=== PATIENT | male | born 1970 | race Caucasian/White ===

== ENCOUNTER 2024-03-24 21:14 | Emergency (ER) | payer OTHER, SELFPAY ==
[2024-03-24] VITALS (7 sets, daily range): BP systolic 96–105; BP diastolic 61–69; BMI 35.0
[2024-03-24 21:43] LABS: % Basophils 0.9 % (0-2); % Eosinophils 2.6 % (0-6); % Immature Granulocytes 0.6 % (0-0.5); % Lymphocytes 35.4 % (20.5-51.1); % Monocytes 5.6 % (1.7-9.3); % Neutrophils 54.9 % (42.2-75.2); Absolute Basophils 0.1 10^3/uL (0-0.2); Absolute Eosinophils 0.2 10^3/uL (0-0.7); Absolute Lymphocytes 2.4 10^3/uL (1.2-3.4); Absolute Monocytes 0.4 10^3/uL (0.1-0.6); Absolute Neutrophils 3.7 10^3/uL (1.4-6.5); Hematocrit 33.2 % (39.0-52.0); Hemoglobin 12.1 g/dL (13.0-18.0); Mean Corp Hgb Conc. 36.4 g/dL (33.0-37.0); Mean Corpuscular Hgb 30.5 pg (27.0-31.0); Mean Corpuscular Volume 83.6 fL (80.0-94.0); Mean Platelet Volume 9.9 fL (7.4-10.4); Nucleated Red Blood Cells % 0 % (-); Platelet Count 218 10^3/uL (130-400); Red Blood Cell Count 3.97 10^6/uL (4.70-6.10); Red Cell Dist. Width 12.4 % (11.5-14.5); White Blood Cell Count 6.6 10^3/uL (4.8-10.8)
--- NOTE | 2024-03-24 21:49 | ED.GENMED ---
History of Present Illness
General
Chief Complaint: Fainting/Passed Out
Time Seen by Provider: 03/24/24 21:23
Travel History
Have you had any contact with someone who has COVID-19?: No
Do you have any symptoms of coronavirus? Fever > 100 degrees, chills, cough, shortness of breath, sore throat, loss of taste or smell, muscle aches, or headache?: No
Symptoms:: syncope, heart palpitations
History of Present Illness
History of Present Illness:
54-year-old male history of atrial fibrillation, asthma, syncope presenting with syncope. at bedside states patient was sitting down when he started to feel dizziness, clammy, diaphoretic and near syncope so he laid on the ground. Patient did
not strike his head. states when medics arrived, they took his blood pressure which was noted to be 60s/40s. Patient was administered 700cc NS IV with improvement. Patient denies any chest pain, headache, shortness of breath, abdominal pain,
vomiting, numbness, weakness, tingling or urinary symptoms. Patient states this feels similar to previous syncopal episodes. Patient admits to having 4 alcoholic beverages and taking a hit from a vape pen tonight. Patient reports feeling
palpitations currently which he always has.
Phy Exam
Physical Exam
Physical Exam:
General: Alert, no acute distress
Head: NCAT
Eyes: clear conjunctiva, PERRLA, EOMI
Neck: supple
Cardiac: regular rate and rhythm, no murmur
Lungs: clear to auscultation bilaterally. No wheezes, rales, or rhonchi. Speaking full unlabored sentences. No respiratory distress.
Abdomen: soft, nondistended nontender. No rebound or guarding.
MSK: no lower extremity edema bilaterally. No deformity
Skin: warm, dry
Neuro: Alert and oriented x3. no focal deficits
Course
Orders/Labs/Results
Orders:
Orders
03/24/24 21:15
Electrocardiogram (*1) Urgent
Reason for Study: Other
Other Reason for Exam: Respiratory Distress
Cardiac Monitoring- Treatment ONCE
EKG- Treatment ONCE
CR Chest - 2 Views Urgent
Comment:
Reason For Exam: respiratory distress
03/24/24 21:37
Complete Blood Count/With Diff Urgent
03/24/24 21:38
Comprehensive Metabolic Panel Urgent
NT-proBNP Urgent
Troponin I Urgent
03/24/24 21:49
0.9% Sodium Chloride 1000 ml [Nss] 1,000 ml IV BOLUS
Abnormal Lab Results
03/24/24 03/24/24
21:37 21:38
RBC 3.97 L 10^6/uL
(4.70-6.10)
Hgb 12.1 L g/dL
(13.0-18.0)
Hct 33.2 L %
(39.0-52.0)
Immature Gran % 0.6 H %
(0-0.5)
Glucose 108 H mg/dl
(70-99)
Total Protein 5.6 L g/dl
(6.3-8.2)
03/24/24 21:37
03/24/24 21:38
Vital Signs
Initial and Last Documented VS:
Initial Vital Signs
Temp Pulse Resp BP Pulse Ox
98.5 F 83 18 105/65 99
03/24/24 21:18 03/24/24 21:18 03/24/24 21:18 03/24/24 21:18 03/24/24 21:18
Last Documented Vital Signs
Temp Pulse Resp BP Pulse Ox
98.5 F 77 19 97/69 99
03/24/24 21:18 03/24/24 22:30 03/24/24 22:30 03/24/24 22:30 03/24/24 21:20
MDM/Problems Addressed
MDM/Problems Addressed:
Patient presents to the Emergency Department with ___syncope
Number and Complexity of Problems Addressed at the Encounter
� Chronic conditions affecting care:
� Acute Exacerbation and/or Progression of Chronic Illness:
� Differential Diagnosis includes: vasovagal syncope, electrolyte abnormality, arrhythmia
Amount and/or Complexity of Data to be Reviewed and Analyzed
� I performed an independent evaluation of and my interpretation is:
EKG: sinus rhythm at 82bpm with NC 172 QTc 490, bigeminy no acute ischemic changes
CT:
Xrays: CXR clear with no focal infiltrate or consolidation, no pneumothorax
Laboratory Studies: labs including CBC, CMP, troponin within normal limits
Other:
� Review of other/old records reveals:
� Clinical information was obtained by an independent historian:
� Prescriptions/Medications Considered but not given:
� Further testing considered but not performed:
Risk of Complications and/or Morbidity or Mortality of Patient Management
� Social Determinants of health affecting care:
� Discussion with other providers (PCP, Hospitalists, Consultants, etc):
� Escalation of care including admission/observation vs risk of discharge considered: 54yoM hx atrial fibrillation, syncope, HTN presenting with syncope. Patient states he was at a wedding when he began feeling dizziness, diaphoretic, clammy and
felt like he was going to pass out so he laid on the ground. Patient admits to having 4 alcoholic beverages tonight and inhaling a vape pen which he doesn't typically do. states it was hot in the room at the time. Patient denies chest pain,
shortness of breath, headache, or abdominal pain. Patient denies any symptoms at this time. Patient states he has had multiple syncopal episodes in the past which have been contributed to his blood pressure. EKG shows bigeminy, otherwise
unremarkable. Labs unremarkable. On reevaluation, site monitor shows NSR in 70s with no bigeminy. CXR clear. Patient asymptomatic currently with no palpitations. Suspect vasovagal syncope. Will discharge with PCP and cardiology follow up.
*Critical Care Note
Total Time (30-74mins, 75-104mins- exclusive of procedures): Not Applicable
ED Attending Note
-
Portions of this chart may have been created with voice recognition software.� Occasional wrong word or��sound alike� substitutions may have occurred due to the inherent limitations of voice recognition software.
Discharge Plan
Departure
Patient Disposition: Home (Routine Discharge)
Date of Disposition: 03/24/24
Time of Disposition: 23:30
Patient with high blood pressure during this ER visit?: No
Discharge Problem:
Vasovagal syncope
Activity Restrictions/Additional Instructions:
Follow up with primary care doctor and cardiology in 1-2 days
Return to the emergency department for chest pain, shortness of breath or new/worsening symptoms
Interventions
Interventions:
*Risk Screen - Suicide Last Done: 03/24/24 21:18
*General Assessment Last Done: 03/24/24 21:18
*Neglect/Abuse Screening Last Done: 03/24/24 21:18
ED- Fall Risk Assessment Last Done: 03/24/24 21:18
*ED COVID-19 Vaccine History Last Done: 03/24/24 21:18
ED- Cardiac Assessment Last Done: 03/24/24 21:44
ED- Neurological Assessment Last Done: 03/24/24 21:44
ED- Pulmonary Assessment Last Done: 03/24/24 21:44
Discharge Date and Time
Print Language: SWEDISH
[2024-03-24 21:57] LABS: ALT (SGPT) 17 U/L (0-50); AST (SGOT) 20 U/L (17-59); Albumin 3.5 g/dl (3.5-5.0); Alkaline Phosphatase 98 U/L (38-126); Blood Urea Nitrogen 16 mg/dl (9-20); Calcium 8.7 mg/dl (8.4-10.2); Carbon Dioxide 22 mmol/L (22-30); Chloride 107 mmol/L (98-107); Estimated Creatinine Clearance 107 ml/min; Glucose 108 mg/dl (70-99); Potassium 3.6 mmol/L (3.5-5.1); Sodium 138 mmol/L (135-145); Total Bilirubin 0.5 mg/dl (0.2-1.3); Total Protein 5.6 g/dl (6.3-8.2); eGFR > 60.00
[2024-03-24 22:09] LABS: NT-proBNP 95.5 pg/ml; Troponin I < 0.012 ng/ml
[2024-03-24] MEDS: NSS 1000 IV (22:30)
== END 2024-03-24 23:49 | disposition home or self-care (01) ==
LOC: EMR 21:14
PROVIDERS: EMERGENCY PHYSICIAN Emergency Medicine
DX: R55 Syncope and collapse (principal); R00.2 Palpitations; I48.91 Unspecified atrial fibrillation; J45.909 Unspecified asthma, uncomplicated; F10.90 Alcohol use, unspecified, uncomplicated; F17.290 Nicotine dependence, other tobacco product, uncomplicated
CPT/HCPCS: 99284; 96360; 71046; 80053; 83880; 84484; 85025; 93005